=== PATIENT | female | born 1985 | race Caucasian/White ===

== ENCOUNTER 2016-12-17 08:40 | Day surgery (SDC) | payer OTHER ==
[~2016-12-17] VITALS: Ht 162.6 cm; Wt 60.8 kg
[~2016-12-17 08:40] MED LIST: AMRIX15 MG; DETROL LA2 MG PO; KLONOPIN0.5 M1 PO; LORTAB 5-325 M1 EACH PO; LUNESTA3 MG PO; LYRICA25 MG; REMERON15 M2 PO; ULTRAM50 MG PO
== END 2016-12-17 10:36 | disposition home or self-care (01) ==
LOC: PAIN 08:40 → SDC 09:00 → PAIN 09:00
PROC: 015B3ZZ Destruction of Lumbar Nerve, Percutaneous Approach (ICD-10-PCS; principal; 2016-12-17)
DX: M47.816 Spondylosis without myelopathy or radiculopathy, lumbar region (principal); G89.29 Other chronic pain; M54.5 Low back pain; G47.00 Insomnia, unspecified; F41.9 Anxiety disorder, unspecified; F90.9 Attention-deficit hyperactivity disorder, unspecified type; F32.9 Major depressive disorder, single episode, unspecified; F17.200 Nicotine dependence, unspecified, uncomplicated
CPT/HCPCS: J1030; J2250; J3010; S0020

== ENCOUNTER 2016-12-24 09:41 | Day surgery (SDC) | payer OTHER ==
[~2016-12-24] VITALS: Ht 162.6 cm; Wt 60.8 kg
== END 2016-12-24 11:30 | disposition home or self-care (01) ==
LOC: PAIN 09:41 → SDC 10:00 → PAIN 10:00
PROC: 015B3ZZ Destruction of Lumbar Nerve, Percutaneous Approach (ICD-10-PCS; principal; 2016-12-24)
DX: M47.896 Other spondylosis, lumbar region (principal); M54.16 Radiculopathy, lumbar region; F41.9 Anxiety disorder, unspecified; F32.9 Major depressive disorder, single episode, unspecified; M51.36 Other intervertebral disc degeneration, lumbar region; M48.06 Spinal stenosis, lumbar region; G89.4 Chronic pain syndrome; F17.200 Nicotine dependence, unspecified, uncomplicated
CPT/HCPCS: J1030; J2250; J3010; S0020